=== PATIENT | male | born 1955 | race Caucasian/White ===

== ENCOUNTER 2025-07-17 08:52 | Outpatient (AMB) | payer MEDICARE, SELFPAY ==
--- NOTE | 2025-07-17 08:55 | AM.OFFWIN_ITS ---
Intake Vital Signs 07/17/25 08:56 Height 5 ft 10 in Weight 151 lb BMI 21.7 BP 106/70 Blood Pressure Location Lt brachial Position Sitting Respiration 16 Pulse 77 Pulse Source Pulse Oximeter Temp 97.8 F Temp Source Oral Pulse Oximetry (%) 99 Intake Visit Reasons: EP-lower rt leg swollen, numbness, pain Intake Note: Pt is hre today c/o Rt lower leg swollen, numbness and painful (Veins) Allergies No Known Allergies Allergy (Verified 07/17/25 08:57) HPI HPI Comments History of Present Illness Details History - The patient is a 70-year-old male pres enting with worsening varicose veins and numbness in the right foot. - The vein problem began as a cosmetic i ssue approximately three to four years ago and has progressively worsened. - Recently, after a long walk, the patie nt experienced increased numbness and inability to bear weight on the right foot. - The numbness is most pronounced in the morning and improves slightly throughout the day, but does not resolve completely. - The patient has not consulted a vascul ar surgeon previously and does not take any medication for the condition. - There is tenderness in the right leg, but no cramping or aching in the muscles, thighs or buttocks. - The patient does not have a primary ca re physician and is seeking a referral to a vascular surgeon. Physical Exam General: Cooperative, healthy appearing, comfortable, no acute distress and well developed Orientation: Patient oriented x3 Limitations: Patient acknowledges limitations due to vein problem Head: Normal to inspection Ears: Hearing grossly normal bilaterally Nose: Normal External nose present Face and sinus: Normal facial exam Mouth: normal, moist oral mucosa Eyes: Appearance normal, both eyes and all related structures Neck: Normal visual inspection and Yes full ROM Respiratory: Normal respiratory effort and able to speak in complete sentences. Skin: no rashes or lesions noted Neuro: Patient oriented x3 Extremities: moving all extremities normally, notable varicose veins in RLE Review of Systems Const All systems reviewed & are unremarkable except as noted in HPI and below Physical Exam Vital Signs: Last Vital Signs Temp 97.8 F 07/17/25 08:56 Pulse 77 07/17/25 08:56 Resp 16 07/17/25 08:56 BP 106/70 07/17/25 08:56 Pulse Ox 99 07/17/25 08:56 BMI result Body Mass Index 21.7 Assessment & Plan Assessment & Plan (1) Varicose veins of right lower extremity: Code(s): I83.91 - Asymptomatic varicose veins of right lower extremity Qualifiers: Varicose vein complication: unspecified Qualified Code(s): I83.91 - Asymptomatic varicose veins of right lower extremity Plan: Patient was informed and verbally consented to the use of an ambient scribe for clinic note documentation during this visit Varicose Veins - Referral to a vascular surgeon for further evaluation and management. - Recommendation to use compression stockings to alleviate symptoms. - Advised to rest and elevate the leg to reduce symptoms. - Referral to establish care with a PCP for referral to a vascular surgeon for comprehensive assessment. Gave pt information for [address] to establish care. Coding Level of Care Code New Pt Level 3 (51041) Diagnoses Varicose veins of right lower extremity, unspecified whether complicated I83.91 Varicose vein complication: unspecified
[2025-07-17 08:56] VITALS: BP 106/70; PULSE 77; RESP 16; TEMP 36.6; O2SAT 99; BMI 21.7
== END 2025-07-17 10:02 | disposition home or self-care (01) ==
PROVIDERS: Visit Provider Physician Assistant
DX: I83.91 Asymptomatic varicose veins of right lower extremity (principal)

== ENCOUNTER → 2025-07-17 08:52 | Outpatient (BNVA) | payer MEDICARE, SELFPAY | PROVIDERS: Visit Provider Physician Assistant | DX: I83.811 Varicose veins of right lower extremity with pain (principal) | CPT/HCPCS: 99202 ==

== ENCOUNTER 2025-07-30 10:10 | Outpatient (AMB) | payer MEDICARE, SELFPAY ==
--- NOTE | 2025-07-30 10:12 | MHC.PC.OV ---
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 Required: No Accompanied by: Self / Same As Patient Allergies No Known Allergies Allergy (Verified 07/30/25 10:12) Medication List - Last Reconciled 07/30/25 by Amarjit Powell MD vitamins A,C,H-bmaq-sjtxlx 4,296 mcg-226 mg-90 mg (PreserVision AREDS) 1 cap PO BID Tobacco use date assessed: 07/30/25 Fall risk assessment: No Falls in past year Last assessed Fall Risk: 07/30/25 Dental Screening Dental Screen Date: 07/30/25 Did you have a dental visit in the last 12 months?: Yes Was dental information given to patient?: Patient has dentist HPI HPI Comments History of Present Illness Details The patient is a 70-year-old male presenting with varicose veins and swelling of the right leg. The patient reports that the leg problems began approximately three to four years ago, initially noted as cosmetic varicosities. Approximately 9 to 12 months ago, the condition started to worsen. The patient describes morning numbness in the right leg, accompanying swelling that is notably different from the left leg, and an occasional limp after extensive physical activity, which resolves as the day progresses. Varicose veins have become hardened over the past two months but are painless upon palpation. The patient reports these symptoms are alleviated by elevating the legs. No reporting of associated fever, chills, chest fluttering, or calf pains. The symptoms of discomfort are primarily reflected in the form of leg numbness and morning swelling, with no recent trauma or accidents linked to these symptoms. The patient expresses a familial link to the current condition through his sister's similar experiences and successful treatment with [facility]. Current daily functionality is not significantly impacted, though the condition remains a source of discomfort and concern for underlying vascular health. Medical History: - No known chronic medical conditions reported by the patient - Past retinal detachment and tear three years ago, surgically repaired by Dr. 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 1. Little interest or pleasure in doing things: not at all 2. Feeling down, depressed, or hopeless: not at all 3. Trouble falling or staying asleep, or sleeping too much: not at all 4. Feeling tired or having little energy: not at all 5. Poor appetite or overeating: not at all 6. Feeling bad about yourself - or that you are a failure or have let yourself or your family down: not at all 7. Trouble concentrating on things, such as reading the newspaper or watching television: not at all 8. Moving or speaking so slowly that other people could have noticed. Or the opposite - being so fidgety or restless that you have been moving around a lot more than usual: not at all 9. Thoughts that you would be better off or of hurting yourself in some way: not at all Total score: 0 Depression Screening Interpretation: Negative Depression Screening Done: Yes 06232 - PHQ-9 Billing: Yes Source: Developed by Drs. Cecilio Resendiz, Lora Winters, Maurice Tavarez and colleagues, with an educational mitchell from [employer]. Thrive Questionnaire Date Thrive assessed: 07/30/25 I am a: Patient What is your living situation today?: I have a steady place to live Within the past 12 months, did the food you bought not last and you didn't have the money to get more?: Never true Within the past 12 months, did you worry whether your food would run out before you got money to buy more?: Never true Do you have trouble paying for medicines?: No Do you have trouble getting transportation to medical appointments?: No Do you have trouble paying your heating and electricity bill?: No Do you have trouble taking care of your child, family member or friend?: No Do you have trouble with day-to-day activities such as bathing, preparing meals, shopping, managing finances, etc.?: No Are you currently unemployed and looking for a job?: No Are you interested in more education?: No THRIVE Score: 0 AUDIT C Alcohol Use Questionnaire (AUDIT-C) 1. How often do you have a drink containing alcohol?: 4 or more times a week 2. How many drinks containing alcohol do you have on a typical day when you are drinking?: 1 or 2 Total Score: 4 Score Reviewed/Action Taken: Yes MECCA-7 AMB Questionnaire MECCA-7 Date MECCA - 7 assessed: 07/30/25 Feeling nervous, anxious, or on edge: 0 = Not at all Not being able to stop or control worryin = Not at all Worrying too much about different things: 0 = Not at all Trouble relaxin = Not at all Being so restless that it is hard to sit still: 0 = Not at all Becoming easily annoyed or irritable: 0 = Not at all Feeling afraid as if something awful might happen: 0 = Not at all Total MECCA-7 score (0-4 normal; 5-9 mild; 10-14 moderate; 15-21 severe): 0 Source: Developed by Drs. Cecilio Resendiz, Lora Winters, Maurice Tavarez and colleagues, with an educational mitchell from [employer]. MECCA-7 Assessment Billing MECCA-7 Assessment Tool: MECCA-7 Assessment 80753 Review of Systems Const Details: - Cardiovascular: Reports swelling in the right leg - Gastrointestinal: Denies abdominal pain, weight loss, diarrhea, constipation - General: Denies fever or chills - Musculoskeletal: Denies joint pains - Neurological: Reports numbness in right leg - Vision: Denies vision changes - Hearing: Denies hearing problems - Other: Denies headaches All systems reviewed & are unremarkable except as reviewed in HPI and above Physical exam (Primary Care) Vital Signs: Last Vital Signs Pulse 74 07/30/25 10:13 Resp 18 07/30/25 10:13 BP 110/76 07/30/25 10:13 Pulse Ox 98 07/30/25 10:13 Oxygen Delivery Method Room Air 07/30/25 10:13 BMI result Body Mass Index 21.5 Tobacco/Smoking Status: Tobacco use Status Tobacco use date assessed 07/30/25 07/30/25 10:13 Patient Tobacco Use Status Never used Tobacco 07/30/25 10:31 e-Cigarette/Vaping Use Never Used 07/30/25 10:31 PHQ-9: PHQ-9 Score PHQ-9: Total score 0 07/30/25 10:42 Depression Screening Interpretation: Negative Thrive Assessment: Date of Thrive Assessment Date Thrive assessed 07/30/25 07/30/25 10:38 Const Other: General: +Alert and oriented, Well nourished, No acute distress. Eye: Pupils are equal, round and reactive to light, Intact accommodation, Extraocular movements are intact, Normal conjunctiva, Vision unchanged. HENT: Normocephalic, Atraumatic, Tympanic membranes are clear, Normal hearing, Oral mucosa is moist, No pharyngeal erythema, Ear canals patent. Respiratory: Lungs CTA bilaterally, No wheeze, Respirations are non-labored. Cardiovascular: Regular rate, Regular rhythm, S1 auscultated, S2 auscultated, No murmur, Good pulses equal in all extremities, Normal peripheral perfusion, No edema. Gastrointestinal: Soft, Non-tender, Non-distended, Normal bowel sounds, No organomegaly. Musculoskeletal: Normal range of motion, Normal strength, No tenderness, No swelling, No deformity, Normal gait. Integumentary: Warm, Dry, Sunburst, Intact. Neurologic: Alert, Oriented, Normal sensory, Normal motor function, No focal defects, Cranial Nerves II-XII are grossly intact, Normal deep tendon reflexes. Psychiatric: Cooperative, Appropriate mood & affect, Normal judgment. Coding Level of Care Code Est Pt Level 4 (13172) Est Pt Prev Care >65y(74357) Diagnoses Establishing care with new doctor, encounter for Z76.89 Varicose veins of right lower extremity, unspecified whether complicated I83.91 Varicose vein complication: unspecified Swelling of lower extremity M79.89 Additional Codes MECCA-7 Assessment Billing - MECCA-7 Assessment Tool: MECCA-7 Assessment 80243 ([id number]) PHQ-9 - 41188 - PHQ-9 Billing: Yes ([id number]) Assessment & Plan Assessment & Plan (1) Establishing care with new doctor, encounter for: Comment: - Obtain baseline labs Code(s): Z76.89 - Persons encountering health services in other specified circumstances Category: Medical (2) Varicose veins of right lower extremity: Comment: - Order duplex ultrasound of the lower extremities to evaluate venous function and assess for venous insufficiency or other vascular issues - Advise continued use of compression stockings and leg elevation to aid in swelling reduction - Referral sent to [facility] for further evaluation and management Code(s): I83.91 - Asymptomatic varicose veins of right lower extremity Category: Medical Qualifiers: Varicose vein complication: unspecified Qualified Code(s): I83.91 - Asymptomatic varicose veins of right lower extremity (3) Swelling of lower extremity: Comment: - Include in duplex ultrasound assessment to determine possibility of venous insufficiency, blood clots, or other vascular causes - Monitor symptoms closely; patient instructed to contact if symptoms worsen or new alarming symptoms develop Code(s): M79.89 - Other specified soft tissue disorders Category: Medical Plan: Health Maintenance: - Due for colonoscopy screening (Ordered today) Plan During the visit, we discussed the probable diagnosis of varicose veins and potential venous sufficiency issues contributing to the swelling in the patient's right leg. I recommended a duplex ultrasound to assess the blood flow and condition of the veins in the patient's lower extremities. Given the patient's familial experience, I referred him to the [facility] for a specialist's opinion. We thoroughly reviewed the potential benefits of early intervention and monitoring and discussed the role of compression stockings and leg elevation in alleviating symptoms. I advised the patient that follow-up consultation would be arranged based on findings from the ultrasound and further input from the vascular specialist. Orders: Orders Complete Blood Count Auto Diff Today Z76.89 - Persons encountering health services in other specified circumstances HIV Ab/Ag Today Z76.89 - Persons encountering health services in other specified circumstances Syphilis Screen Today Z76.89 - Persons encountering health services in other specified circumstances TSH reflex Free T4 Today Z76.89 - Persons encountering health services in other specified circumstances Vitamin D 25-OH Total Today Z76.89 - Persons encountering health services in other specified circumstances US arterial duplex LE BI Today I83.91 - Asymptomatic varicose veins of right lower extremity, M79.89 - Other specified soft tissue disorders Comprehensive Met. Panel Today Z76.89 - Persons encountering health services in other specified circumstances Hemoglobin A1c Today Z76.89 - Persons encountering health services in other specified circumstances Hepatitis A,B,C Profile Today Z76.89 - Persons encountering health services in other specified circumstances Lipid Panel Today Z76.89 - Persons encountering health services in other specified circumstances US venous duplex LE BI Today I83.91 - Asymptomatic varicose veins of right lower extremity, M79.89 - Other specified soft tissue disorders Referrals Open Access Screening Colonoscopy Referral Z12.11 - Encounter for screening for malignant neoplasm of colon Vascular Surgery Referral I83.91 - Asymptomatic varicose veins of right lower extremity, M79.89 - Other specified soft tissue disorders Patient Instructions: - Wear compression stockings during the day and elevate legs while resting to reduce swelling - Await scheduling for a lower extremity ultrasound and subsequent appointment with [facility] - Scheduled for follow-up in three months to monitor progress or address any changes in symptoms or treatment - Inform our office immediately if there is a sharp increase in leg swelling, severe pain, or if any new symptoms arise - Plan to have a colonoscopy performed as due for screening
[2025-07-30 10:13] VITALS: BP 110/76; PULSE 74; RESP 18; O2SAT 98; BMI 21.5
== END 2025-07-30 10:51 | disposition home or self-care (01) ==
PROVIDERS: PCP Student in an Organized Health Care Education/Training Program; Visit Provider Student in an Organized Health Care Education/Training Program
DX: I83.91 Asymptomatic varicose veins of right lower extremity (principal); M79.89 Other specified soft tissue disorders; Z76.89 Persons encountering health services in other specified circumstances

== ENCOUNTER → 2025-07-30 10:10 | Outpatient (BNVA) | payer MEDICARE, SELFPAY | PROVIDERS: Visit Provider Student in an Organized Health Care Education/Training Program | DX: Z76.89 Persons encountering health services in other specified circumstances (principal); I83.91 Asymptomatic varicose veins of right lower extremity; M79.89 Other specified soft tissue disorders; Z13.31 Encounter for screening for depression; Z13.39 Encounter for screening examination for other mental health and behavioral disorders | CPT/HCPCS: 96127; 99212 ==

== ENCOUNTER 2025-08-05 08:16 | Outpatient (REF) | payer MEDICARE, SELFPAY ==
[2025-08-05 08:43] LABS: MANUAL DIFF FLAG NO
[2025-08-05 09:16] LABS: Hematocrit 43.2 % (42.0-52.0); Hemoglobin 14.2 g/dl (14.0-18.0); Imm Gran Abs Auto 0.02 X10*3/uL (0.00-0.03); Imm Gran Pct Auto 0.4 % (0.0-0.4); Lymphocytes Absolute Auto 1.4 X10*3/uL (1.2-4.9); Mean Corpuscular HGB Conc 32.9 g/dl (31.0-36.0); Mean Corpuscular Hemoglobin 29.1 pg (27.0-33.0); Mean Corpuscular Volume 88.5 fL (80.0-98.0); NRBC Abs Auto 0.000 X10*3/uL (0.0-0.012); NRBC Pct Auto 0.0 /100WBC (0.0-0.2); Platelet Count 202 X10*3/uL (160-400); Red Blood Count 4.88 X10*6/uL (4.60-5.80); White Blood Count 5.7 X10*3/uL (4.8-10.8)
[2025-08-05 09:27] LABS: Hemoglobin A1C 139.6938 umol/L; Total Hemoglobin (HGBA1C) 3761.3496 umol/L
[2025-08-05 09:29] LABS: Alanine Aminotransferase 30 U/L (0-40); Albumin Level 4.6 g/dL (3.5-5.0); Alkaline Phosphatase 85 U/L (39-117); Anion Gap 11 (12-20); Aspartate Amino Transferase 35 U/L (5-37); Blood Urea Nitrogen 15 mg/dL (9-16); Calcium 9.2 mg/dL (8.4-10.2); Carbon Dioxide 27 mmol/L (22-29); Chloride 108 mmol/L (96-108); Cholesterol 178 mg/dL (<200); Estimated Glomerular Filt Rate > 60; HDL Cholesterol 38 mg/dL (>40); Potassium 4.6 mmol/L (3.3-5.1); Sodium 141 mmol/L (135-145); Total Protein 7.0 g/dL (6.5-8.0); Triglycerides 86 mg/dL (<150)
[2025-08-05 09:42] LABS: Syphilis Screen Nonreactive (Nonreactive)
[2025-08-05 09:44] LABS: HBS Num1 0.00 mIU/mL (0-7.99); HBc Num1 0.19 S/CO (0.00-0.79); HBsAGNum1 0.45 S/CO (0.00-0.99); HIV Num 1 0.06 S/CO (0.00-0.99); Hepatitis A Antibody IgM 0.19 Index (0-0.79); Hepatitis B Surface Antigen Negative (Negative); ~HepC Num1 0.14 S/CO (0.00-0.79); ~Hepatitis A Antibody IgM Nonreactive (Nonreactive); ~Hepatitis B Surface Antibody NONREACTIVE (Nonreactive); ~Hepatitis C Antibody Nonreactive (Nonreactive)
== END 2025-08-05 08:17 | disposition home or self-care (01) ==
LOC: HO.LAB 08:16
PROVIDERS: Visit Provider Student in an Organized Health Care Education/Training Program
DX: Z11.4 Encounter for screening for human immunodeficiency virus [HIV] (principal); Z13.1 Encounter for screening for diabetes mellitus; Z13.6 Encounter for screening for cardiovascular disorders; Z13.29 Encounter for screening for other suspected endocrine disorder; Z76.89 Persons encountering health services in other specified circumstances
CPT/HCPCS: 36415; 80053; 80061; 82306; 83036; 84443; 85025; 86704; 86706; 86709; 86780; 86803; 87340; 87389